=== PATIENT | male | born 1960 | race Two or more races ===

== ENCOUNTER 2025-02-10 12:53 | Emergency (ER) | payer OTHER ==
[~2025-02-10] VITALS: Ht 172.7 cm; Wt 100.9 kg
[2025-02-10 13:19] VITALS: BP 128/71; TEMP 98.1
[2025-02-10 13:34] LABS: PLATELET COUNT (AUTO) 176 K/uL (150-450); RED BLOOD CELL COUNT(AUTO) 5.50 MIL/uL (4.5-6.0); RED CELL DISTRIBUTION WIDTH 14.1 % (11.5-15.0); WHITE BLOOD COUNT (AUTO) 10.7 K/uL (4.3-11.0)
[2025-02-10 13:47] LABS: CALCIUM, SERUM 8.8 mg/dL (8.5-10.1); CREATININE 0.8 mg/dL (0.6-1.3); SODIUM SERUM 140.0 mmol/L (136-145); UREA NITROGEN, BLOOD 13.0 mg/dL (7-18)
[2025-02-10 13:54] LABS: ASPARTATE AMINOTRANSFERASE 18.0 U/L (15-37); TOTAL PROTEIN, SERUM 7.5 g/dL (6.4-8.2)
[2025-02-10] MEDS ORDERED: BENZ-13 PO (14:16)
[2025-02-10 14:59] VITALS: O2SAT 0
== END 2025-02-10 15:02 | disposition home or self-care (01) ==
LOC: ER 13:04
DX: R05.8 Other specified cough (principal); R06.02 Shortness of breath; R07.9 Chest pain, unspecified; Z87.891 Personal history of nicotine dependence
CPT/HCPCS: 36415; 71045-TC; 80053-TC; 85025-TC